=== PATIENT | female | born 1985 | race Caucasian/White ===

== ENCOUNTER 2018-08-27 21:35 | Emergency (ER) | payer OTHER ==
[~2018-08-27] VITALS: Ht 157.5 cm; Wt 70.5 kg
[2018-08-27 21:51] VITALS: BP 115/76
[2018-08-27 23:02] LABS: BASOPHILS # (AUTO) 0.1 K/uL (0.00-0.22); BASOPHILS % (AUTO) 0.4 % (0.0-2.0); EOSINOPHILS # (AUTO) 0.2 K/uL (0-0.4); EOSINOPHILS % (AUTO) 1.4 % (0.0-4.0); HEMATOCRIT 38.6 % (36-48); HEMOGLOBIN 12.8 g/dL (12.0-16.0); LYMPHOCYTES % (AUTO) 24.1 % (20.5-51.1); MEAN CORPUSCULAR HEMOGLOBIN 31 pg (27-31); MEAN CORPUSCULAR HGB CONC 33 g/dL (33-37); MEAN CORPUSCULAR VOLUME 91.9 fL (80-94); MONOCYTES # (AUTO) 1.1 K/uL (0.8-1.0); MONOCYTES % (AUTO) 8.6 % (1.7-9.3); NEUTROPHILS # (AUTO) 8.2 K/uL (1.8-7.7); NEUTROPHILS % (AUTO) 65.5 % (42.2-75.2); PLATELET COUNT (AUTO) 281 K/uL (140-450); RED CELL DISTRIBUTION WIDTH 12.4 % (11.6-13.7); WHITE BLOOD COUNT (AUTO) 12.5 K/uL (4.8-10.8)
[2018-08-28 00:27] VITALS: BP 111/64
== END 2018-08-28 00:26 | disposition home or self-care (01) ==
LOC: MED 21:35
DX: O20.0 Threatened abortion (principal); Z3A.11 11 weeks gestation of pregnancy
CPT/HCPCS: 36415; 76817; 81025; 84702; 85025; 86886; 86900; 86901; 99285; Q0092

== ENCOUNTER 2018-08-30 08:09 | Emergency (ER) | payer OTHER ==
[~2018-08-30] VITALS: Ht 157.5 cm; Wt 69.4 kg
[2018-08-30 08:16] VITALS: BP 110/67
--- NOTE | 2018-08-30 08:17 | NUR ---
[facility]if[facility] huff in [facility] - 08/30/18 at 0820 by SAMUEL PATIENT AMBULATED TO BED 8 AT THIS TIME.
--- NOTE | 2018-08-30 08:21 | NUR ---
PT AMBULATED TO RESTROOM, TO GO TO 12 AFTER. VSS.
[2018-08-30] MEDS ORDERED: NACL 0.9% 1,000 ML IV SCH (08:27)
--- NOTE | 2018-08-30 08:37 | NUR ---
DR FELDMAN AT BEDSIDE PERFORMING MSE
--- NOTE | 2018-08-30 08:42 | NUR ---
PT C/O INCREASED VAGINAL BLEEDING WORSENING SINCE WEDNESDAY. WAS SEEN IN ER ON SAT FOR SPOTTING. PT CLAIMS GOLF BALL SIZED CLOT LAST NIGHT. PT TOOK TYLENOL PM LAST NIGHT /FOR CRAMPING. PAIN 7/10CRAMPING AND BACK PAIN. HX: DENIES RX: DENIES
--- NOTE | 2018-08-30 08:48 | NUR ---
U/S TECH AT BEDSIDE
[2018-08-30 08:55] LABS: BASOPHILS % (AUTO) 0.3 % (0.0-2.0); EOSINOPHILS # (AUTO) 0.1 K/uL (0-0.4); EOSINOPHILS % (AUTO) 0.5 % (0.0-4.0); HEMATOCRIT 38.5 % (36-48); HEMOGLOBIN 13.2 g/dL (12.0-16.0); LYMPHOCYTES # (AUTO) 1.8 K/uL (2.5-16.5); LYMPHOCYTES % (AUTO) 14.9 % (20.5-51.1); MEAN CORPUSCULAR HEMOGLOBIN 31 pg (27-31); MEAN CORPUSCULAR HGB CONC 34 g/dL (33-37); MEAN CORPUSCULAR VOLUME 90.9 fL (80-94); MONOCYTES # (AUTO) 0.6 K/uL (0.8-1.0); MONOCYTES % (AUTO) 5.2 % (1.7-9.3); NEUTROPHILS # (AUTO) 9.6 K/uL (1.8-7.7); NEUTROPHILS % (AUTO) 79.1 % (42.2-75.2); PLATELET COUNT (AUTO) 286 K/uL (140-450); RED BLOOD CELL COUNT(AUTO) 4.23 MIL/uL (4.20-5.40); RED CELL DISTRIBUTION WIDTH 12.5 % (11.6-13.7); WHITE BLOOD COUNT (AUTO) 12.1 K/uL (4.8-10.8)
--- NOTE | 2018-08-30 09:28 | NUR ---
PT AMBULATED TO RESTROOM AT THIS TIME
[2018-08-30 09:59] LABS: APPEARANCE,URINE CLEAR (CLEAR); BILIRUBIN,URINE NEGATIVE (NEGATIVE); BLOOD, URINE 3+ (NEGATIVE); COLOR,URINE YELLOW (YELLOW); PH,URINE 6.5 (5.0-9.0); UGLUCOSE NEGATIVE (NEGATIVE)
[2018-08-30 10:00] LABS: LEUKOCYTE ESTERASE ,URINE NEGATIVE (NEGATIVE); NITRITE, URINE NEGATIVE (NEGATIVE)
[2018-08-30 10:02] LABS: RBC,URINE 3-10 (FEW) /HPF (0-5); WBC,URINE 0-5 (RARE) /HPF (0-5)
[2018-08-30 10:28] VITALS: BP 125/70
--- NOTE | 2018-08-30 10:28 | NUR ---
Patient discharged with v/s stable. Written and verbal after care instructions given and explained. Patient verbalized understanding. Ambulatory with steady gait. All questions addressed prior to discharge. Advised to follow up with PMD.
== END 2018-08-30 10:28 | disposition home or self-care (01) ==
LOC: MED 08:09
DX: O20.0 Threatened abortion (principal); Z3A.12 12 weeks gestation of pregnancy
CPT/HCPCS: 36415; 76817; 81001; 81025; 84702; 85025; 99285; Q0092

== ENCOUNTER 2020-10-26 00:40 | Emergency (ER) | payer OTHER ==
[~2020-10-26] VITALS: Ht 157.5 cm; Wt 74.4 kg
[2020-10-26 01:55] VITALS: BP 121/80
[2020-10-26 04:09] LABS: BASOPHILS # (AUTO) 0.1 K/uL (0.00-0.22); BASOPHILS % (AUTO) 0.9 % (0.0-2.0); EOSINOPHILS # (AUTO) 0.2 K/uL (0-0.4); EOSINOPHILS % (AUTO) 2.6 % (0.0-4.0); HEMATOCRIT 40.2 % (36-48); HEMOGLOBIN 13.7 g/dL (12.0-16.0); LYMPHOCYTES # (AUTO) 2.9 K/uL (2.5-16.5); LYMPHOCYTES % (AUTO) 41.6 % (20.5-51.1); MEAN CORPUSCULAR HEMOGLOBIN 30 pg (27-31); MEAN CORPUSCULAR HGB CONC 34 g/dL (33-37); MEAN CORPUSCULAR VOLUME 87.2 fL (80-94); MONOCYTES # (AUTO) 0.5 K/uL (0.8-1.0); MONOCYTES % (AUTO) 7.3 % (1.7-9.3); NEUTROPHILS # (AUTO) 3.3 K/uL (1.8-7.7); NEUTROPHILS % (AUTO) 47.6 % (42.2-75.2); PLATELET COUNT (AUTO) 326 K/uL (140-450); RED BLOOD CELL COUNT(AUTO) 4.61 MIL/uL (4.20-5.40); RED CELL DISTRIBUTION WIDTH 13.6 % (11.6-13.7)
[2020-10-26] MEDS ORDERED: ASPIRIN 81 MG TAB.CHEW PO ONE (04:10)
[2020-10-26 04:36] LABS: ALBUMIN 4.1 g/dL (3.4-5.0); ANION GAP 14.1 (8-16); CARBON DIOXIDE 26.9 mmol/L (21-32); CREATININE 0.5 mg/dL (0.6-1.3); TOTAL BILIRUBIN 0.5 mg/dL (0.0-1.0)
--- NOTE | 2020-10-26 05:04 | NUR ---
pt eloped/lwbs
== END 2020-10-26 05:00 | disposition left against medical advice (07) ==
LOC: MED 00:40
DX: R07.2 Precordial pain (principal)
CPT/HCPCS: 36415; 71045; 80053; 83880; 84484; 84703; 85025; 93005; 99285